=== PATIENT | female | born 1995 | race Caucasian/White ===

== ENCOUNTER → 2019-07-20 | Outpatient (CLI) | payer OTHER ==
--- NOTE | 2019-07-20 18:41 | REP ---
PA and lateral chest: There are no comparisons. The lung hernandez are clear. The cardiac size is normal. The sandeep, mediastinum, and skeletal structures are unremarkable. Impression: Negative PA and lateral chest. Electronically Signed by Angel Luis Paz MD 07/20/2019 06:32 P
== END ==
LOC: M LRY 18:11
PROVIDERS: ATTEND Physician Assistant
DX: R05 Cough (principal)
CPT/HCPCS: 71046; 87804; 87880; G0463

== ENCOUNTER → 2019-07-20 | Outpatient (REF) | payer OTHER | LOC: M SFHCLERA 18:10 | PROVIDERS: ATTEND Physician Assistant | DX: J02.9 Acute pharyngitis, unspecified (principal) ==

== ENCOUNTER 2020-09-08 16:39 | Emergency (ER) | payer OTHER ==
[~2020-09-08] VITALS: Ht 180.3 cm; Wt 133.2 kg
[2020-09-08] MEDS ORDERED: MAGN400T2 PO (16:45)
[2020-09-08] MEDS ORDERED: ZOLO100T PO (16:45)
[2020-09-08] MEDS ORDERED: BUPR15TA PO (16:45)
[2020-09-08] MEDS ORDERED: LEVO25TA5 PO (16:45)
--- NOTE | 2020-09-08 18:08 | REPVR ---
PROCEDURE INFORMATION: Exam: US First Trimester, Transabdominal Exam date and time: 09/08/2020 5:49 PM Age: 25 years old Clinical indication: Other: RT pelvic pain; Gestational age or lmp: 10; ; Additional info: R pelvic pain TECHNIQUE: Imaging protocol: Real-time transabdominal obstetrical ultrasound of the maternal pelvis and a first trimester , less than 14 weeks 0 days, with image documentation. COMPARISON: No relevant prior studies available. FINDINGS: Gestation: Single gestational sac demonstrated in the uterus. Single pole within the gestational sac. Small perigestational fluid collection likely representing a bleed possibly related to implantation measures 1 x 0.9 x 1.2 cm. Embryonic/ heart rate: heart rate is 170 bpm. Placenta: Unremarkable. No subchorionic bleed. Amniotic fluid: Amniotic fluid is normal for gestational age. BIOMETRY: Gestational age (AUA): Saxman-rump length is 26.2 mm corresponding to a gestational age of 9 weeks 3 days in this patient who is 10 weeks 2 days based on LMP of 06/28/2020. Estimated due date (AUA): GUILLERMO based on ultrasound is 04/10/2021. MATERNAL: Uterus: Unremarkable. Cervix: Unremarkable. Right adnexa: Small corpus luteum in the right ovary measures 1.3 x 1.2 x 1.3 cm. Left adnexa: Unremarkable. Intraperitoneal space: No intraperitoneal free fluid. IMPRESSION: Small perigestational bleed as described above. Gestational age based on measurement of the crown-rump length is 9 weeks 3 days with an GUILLERMO of 04/10/2021. Detailed structural survey can be performed between 19-20 weeks if clinically desired. Electronically signed by: Juan Celeste On 09/08/2020 18:08:01 PM
[2020-09-08 18:57] LABS: BASO % 0.3 % (0.0-1.0); EOS # 0.1 10^3/uL (0.0-0.5); EOS % 0.9 % (0.0-3.0); HEMOGLOBIN 12.4 g/dl (12.0-15.5); LYMPH # 1.5 10^3/uL (1.5-5.0); LYMPH % 15.9 % (24.0-44.0); MEAN CORPUSCULAR HEMOGLOBIN 28.7 pg (27.0-33.0); MEAN CORPUSCULAR HGB CONC 32.6 g/dl (32.0-36.5); MONO # 0.6 10^3/uL (0.0-0.8); MONO % 5.9 % (2.0-8.0); NEUTROPHILS # 7.3 10^3/uL (1.5-8.5); NEUTROPHILS % 76.6 % (36.0-66.0); PLATELET COUNT, AUTOMATED 334 10^3/uL (150-450); RED BLOOD COUNT 4.32 10^6/uL (4.00-5.40); WHITE BLOOD COUNT 9.5 10^3/uL (4.0-10.0)
[2020-09-08] MEDS ORDERED: NITROFURANTOIN (MACROBID) 100 MG CAP PO ONE (19:15)
[2020-09-08] MEDS ORDERED: MACR100C43 PO ×2 (19:22→20:25)
[2020-09-08 19:35] VITALS: BP 132/83
[2020-09-08 19:44] LABS: ALBUMIN 3.1 GM/DL (3.2-5.2); ALT/SGPT 21 U/L (12-78); BILIRUBIN,DIRECT < 0.1 MG/DL (0.0-0.2); BILIRUBIN,TOTAL 0.1 MG/DL (0.2-1.0); HCG, SERUM QUANTITATIVE 42827 MIU/ML; TOTAL PROTEIN 7.1 GM/DL (6.4-8.2)
== END 2020-09-08 20:25 | disposition home or self-care (01) ==
LOC: M ED 16:39
DX: O23.41 Unspecified infection of urinary tract in pregnancy, first trimester (principal); Z3A.10 10 weeks gestation of pregnancy; O99.281 Endocrine, nutritional and metabolic diseases complicating pregnancy, first trimester; E03.9 Hypothyroidism, unspecified; Z88.0 Allergy status to penicillin; Z79.899 Other long term (current) drug therapy; Z79.890 Hormone replacement therapy

== ENCOUNTER 2022-02-10 10:27 | Emergency (ER) | payer OTHER ==
[~2022-02-10] VITALS: Ht 180.3 cm; Wt 138.6 kg
[~2022-02-10 10:27] MED LIST: BUPR15TA PO; LEVO25TA5 PO; MACR100C43 PO; MAGN400T2 PO; ZOLO100T PO
[2022-02-10] MEDS ORDERED: ZOLP10TA2 (10:39)
[2022-02-10] MEDS ORDERED: GLYB-148 (10:39)
[2022-02-10] MEDS ORDERED: SUMA100T2 (10:39)
[2022-02-10] MEDS ORDERED: LEXA1TAB2 (10:39)
[2022-02-10] MEDS ORDERED: BUSP5TA PO (10:39)
[2022-02-10] MEDS ORDERED: NS 1,000 ML IV ONE (11:55)
[2022-02-10 12:00] LABS: BASO # 0.1 10^3/uL (0.0-0.2); BASO % 0.6 % (0.0-1.0); EOS # 0.2 10^3/uL (0.0-0.5); EOS % 1.9 % (0.0-3.0); HEMATOCRIT 35.4 % (36.0-47.0); HEMOGLOBIN 10.5 g/dl (12.0-15.5); LYMPH # 1.9 10^3/uL (1.5-5.0); LYMPH % 21.2 % (24.0-44.0); MEAN CORPUSCULAR HEMOGLOBIN 22.6 pg (27.0-33.0); MEAN CORPUSCULAR HGB CONC 29.7 g/dl (32.0-36.5); MEAN CORPUSCULAR VOLUME 76.1 fl (80.0-96.0); MONO # 0.6 10^3/uL (0.0-0.8); MONO % 6.4 % (2.0-8.0); NEUTROPHILS # 6.1 10^3/uL (1.5-8.5); NEUTROPHILS % 69.7 % (36.0-66.0); PLATELET COUNT, AUTOMATED 472 10^3/uL (150-450); RED BLOOD COUNT 4.65 10^6/uL (4.00-5.40); WHITE BLOOD COUNT 8.7 10^3/uL (4.0-10.0)
[2022-02-10] MEDS ORDERED: ACETAMINOPHEN 500 MG TAB PO ONE (12:05)
[2022-02-10 12:36] LABS: BLOOD UREA NITROGEN 14 MG/DL (7-18); CALCIUM LEVEL 9.2 MG/DL (8.5-10.1); CARBON DIOXIDE LEVEL 26 MEQ/L (21-32); CHLORIDE LEVEL 107 MEQ/L (98-107); CREATININE FOR GFR 0.84 MG/DL (0.55-1.30); GLOMERULAR FILTRATION RATE > 60.0 (>60); GLUCOSE, FASTING 80 MG/DL (70-100); POTASSIUM SERUM 4.5 MEQ/L (3.5-5.1); SODIUM LEVEL 136 MEQ/L (136-145)
[2022-02-10 12:47] LABS: APPEARANCE, URINE MANUAL CLEAR (CLEAR)
[2022-02-10 12:48] LABS: BILIRUBIN, URINE MANUAL NEGATIVE (NEGATIVE); BLOOD URINE MANUAL POSITIVE (NEGATIVE); COLOR, URINE MANUAL YELLOW (YELLOW); GLUCOSE, URINE (UA) MANUAL NEGATIVE (NEGATIVE); KETONE, URINE MANUAL 1+ mg/dL (NEGATIVE); LEUKOCYTE ESTERASE, URINE MAN NEGATIVE (NEGATIVE); NITRITE, URINE MANUAL NEGATIVE (NEGATIVE); PROTEIN, URINE MANUAL NEGATIVE (NEGATIVE); SPECIFIC GRAVITY,URINE MANUAL 1.015 (1.002-1.035); UROBILINOGEN, URINE MANUAL NORMAL (NORMAL)
[2022-02-10 12:58] LABS: BACTERIA, URINE SMALL AMOUNT; HYALINE CAST, URINE NONE SEEN /lpf (0-1); SQUAMOUS EPITHELIAL CELL URINE SMALL AMOUNT /hpf (SMALL AMT); WBC, URINE 0-1 /hpf (0-3)
[2022-02-10 13:56] VITALS: BP 124/76
== END 2022-02-10 13:59 | disposition home or self-care (01) ==
LOC: M ED 10:27
DX: N93.9 Abnormal uterine and vaginal bleeding, unspecified (principal); N80.9 Endometriosis, unspecified; N83.209 Unspecified ovarian cyst, unspecified side; I10 Essential (primary) hypertension; Z79.84 Long term (current) use of oral hypoglycemic drugs; Z88.1 Allergy status to other antibiotic agents; Z98.84 Bariatric surgery status